=== PATIENT | male | born 1965 | race Caucasian/White ===

== ENCOUNTER 2018-07-12 17:49 | Inpatient (IN) | payer BC ==
[~2018-07-12] VITALS: Ht 180.3 cm; Wt 95.3 kg
[2018-07-12 17:53] VITALS: Ht 180.3 cm; Wt 95.3 kg
[2018-07-12 18:39] LABS: RED CELL DISTRIBUTION WIDTH 20.2 % (11.5-14.5)
[2018-07-12 18:43] LABS: BILIRUBIN TOTAL 3.34 mg/dL (0.20-1.00); CARBON DIOXIDE 18.4 mmol/L (21-32); TOTAL PROTEIN, SERUM 7.1 g/dL (6.4-8.2)
[2018-07-12 18:51] LABS: ALBUMIN 2.7 g/dL (3.4-5.0)
[2018-07-12 18:55] LABS: CREATININE SERUM 4.4 mg/dL (0.7-1.3); POTASSIUM SERUM 5.9 mmol/L (3.5-5.1)
[2018-07-12] MEDS ORDERED: LISINOPRIL40 MG PO (18:57)
[2018-07-12 19:44] LABS: MAGNESIUM 2.4 mg/dL (1.8-2.4); PHOSPHOROUS 5.2 mg/dL (2.5-4.9)
[2018-07-12 19:57] LABS: BAND NEUTROPHIL 6 % (0-10); BASOPHIL 0 % (0-2); MONOCYTE 6 % (0-7); SEGMENTED NEUTROPHILS 78 % (37-75); rbc morphology (normal/abnorm) ABNORMAL (NORMAL)
[2018-07-12 19:58] LABS: PLATELET MORPHOLOGY PLATELETS DECREASED; ovalocyte/elliptocyte 1+; schistocyte (helmet cell) 1+; target cell (codocyte) 1+
[2018-07-12 20:06] LABS: PLATELET COUNT 41 x10^3mcL (130-400)
[2018-07-12 21:40] VITALS: BP 79/50
[2018-07-12 21:55] VITALS: BP 88/45
[2018-07-12 23:20] VITALS: BP 98/38
[2018-07-12 23:39] VITALS: BP 85/41
[2018-07-13] VITALS (19 sets, daily range): BP systolic 78–112; BP diastolic 37–77
[2018-07-13 02:12] LABS: CALCIUM 8.1 mg/dL (8.5-10.1); POTASSIUM SERUM 5.4 mmol/L (3.5-5.1)
[2018-07-13 02:17] LABS: CREATININE SERUM 4.7 mg/dL (0.7-1.3)
[2018-07-13 05:50] LABS: CALCIUM 8.2 mg/dL (8.5-10.1); CARBON DIOXIDE 21.2 mmol/L (21-32); MAGNESIUM 2.2 mg/dL (1.8-2.4); PHOSPHOROUS 5.9 mg/dL (2.5-4.9); POTASSIUM SERUM 5.4 mmol/L (3.5-5.1)
[2018-07-13 05:52] LABS: BASOPHIL % 0 % (0-2); RED CELL DISTRIBUTION WIDTH 19.7 % (11.5-14.5)
[2018-07-13 06:12] LABS: ovalocyte/elliptocyte 1+; rbc morphology (normal/abnorm) ABNORMAL (NORMAL); target cell (codocyte) 1+; tear drop cell (dacryocyte) 1+
[2018-07-13 06:29] LABS: PLATELET COUNT 32 x10^3mcL (130-400)
[2018-07-13 08:15] LABS: UA SPECIFIC GRAVITY >=1.030 (1.005-1.035); microscopic required? YES; urine erythrocyte 1+ (NEGATIVE)
[2018-07-13 08:31] LABS: IRON 46 ug/dL (65-170)
[2018-07-13 08:34] LABS: TOTAL IRON BINDING CAPACITY 204 ug/dL (250-450)
[2018-07-13 08:47] LABS: CALCIUM 8.2 mg/dL (8.5-10.1); CARBON DIOXIDE 20.1 mmol/L (21-32); POTASSIUM SERUM 5.2 mmol/L (3.5-5.1)
[2018-07-13 08:55] LABS: CREATININE SERUM 4.9 mg/dL (0.7-1.3)
[2018-07-13 09:42] LABS: RED BLOOD CELLS 1.78 M/mm3 (4.52-5.90)
[2018-07-13 10:25] LABS: AMPHETAMINE QUAL UR NONE DETECTED (See below)
[2018-07-13 11:33] LABS: BASOPHIL % 0 % (0-2); RED CELL DISTRIBUTION WIDTH 19.9 % (11.5-14.5)
[2018-07-13 11:36] LABS: PLATELET COUNT 31 x10^3mcL (130-400); rbc morphology (normal/abnorm) ABNORMAL (NORMAL)
[2018-07-13 11:39] LABS: ovalocyte/elliptocyte 1+; target cell (codocyte) 1+
[2018-07-14] VITALS (17 sets, daily range): BP systolic 74–105; BP diastolic 44–59
[2018-07-14 04:31] LABS: CARBON DIOXIDE 21.5 mmol/L (21-32); POTASSIUM SERUM 5.2 mmol/L (3.5-5.1)
[2018-07-14 04:34] LABS: CREATININE SERUM 4.8 mg/dL (0.7-1.3)
[2018-07-14 04:40] LABS: BASOPHIL % 0.3 % (0-2)
[2018-07-14 04:43] LABS: PLATELET COUNT 90 x10^3mcL (130-400); RED CELL DISTRIBUTION WIDTH 20.6 % (11.5-14.5)
[2018-07-14 04:58] LABS: rbc morphology (normal/abnorm) ABNORMAL (NORMAL)
[2018-07-14 14:54] LABS: rbc morphology (normal/abnorm) ABNORMAL (NORMAL)
[2018-07-15 01:35] VITALS: BP 91/48
[2018-07-15 03:14] LABS: CALCIUM 7.4 mg/dL (8.5-10.1)
[2018-07-15 03:19] LABS: RED CELL DISTRIBUTION WIDTH 22.1 % (11.5-14.5)
[2018-07-15 03:22] LABS: PLATELET COUNT 78 x10^3mcL (130-400)
[2018-07-15 03:28] LABS: ALBUMIN 2.8 g/dL (3.4-5.0); CREATININE SERUM 6.3 mg/dL (0.7-1.3)
[2018-07-15 03:43] LABS: MONOCYTE 8 % (0-7); SEGMENTED NEUTROPHILS 71 % (37-75)
[2018-07-15 03:44] LABS: BAND NEUTROPHIL 14 % (0-10); BASOPHIL 0 % (0-2); METAMYELOCTE 1 % (0-2)
[2018-07-15 03:45] VITALS: BP 94/44
[2018-07-15 03:46] LABS: rbc morphology (normal/abnorm) ABNORMAL (NORMAL)
[2018-07-15 05:50] VITALS: BP 87/49
== END 2018-07-15 08:10 | disposition expired | DRG 871 ==
LOC: ED 17:49 → DU 18:49 → IC 18:49 → DU 20:25 → IC 07-13 04:04
PROVIDERS: Emergency Medicine; Family Medicine; Internal Medicine
PROC: 30233N1 Transfusion of Nonautologous Red Blood Cells into Peripheral Vein, Percutaneous Approach (ICD-10-PCS; 2018-07-12)
PROC: 0W3P8ZZ Control Bleeding in Gastrointestinal Tract, Via Natural or Artificial Opening Endoscopic (ICD-10-PCS; 2018-07-13)
PROC: 0BH17EZ Insertion of Endotracheal Airway into Trachea, Via Natural or Artificial Opening (ICD-10-PCS; 2018-07-13)
PROC: 5A1945Z Respiratory Ventilation, 24-96 Consecutive Hours (ICD-10-PCS; 2018-07-13)
PROC: 30233L1 Transfusion of Nonautologous Fresh Plasma into Peripheral Vein, Percutaneous Approach (ICD-10-PCS; 2018-07-13)
PROC: 30233R1 Transfusion of Nonautologous Platelets into Peripheral Vein, Percutaneous Approach (ICD-10-PCS; 2018-07-13)
PROC: 30233K1 Transfusion of Nonautologous Frozen Plasma into Peripheral Vein, Percutaneous Approach (ICD-10-PCS; 2018-07-13)
PROC: 02HV33Z Insertion of Infusion Device into Superior Vena Cava, Percutaneous Approach (ICD-10-PCS; principal; 2018-07-13 12:00)
PROC: B5181ZA Fluoroscopy of Superior Vena Cava using Low Osmolar Contrast, Guidance (ICD-10-PCS; 2018-07-13 12:00)
PROC: 2Y41X5Z Packing of Nasal Region using Packing Material (ICD-10-PCS; 2018-07-14)
DX: A41.9 Sepsis, unspecified organism (principal); J96.01 Acute respiratory failure with hypoxia; J69.0 Pneumonitis due to inhalation of food and vomit; N17.0 Acute kidney failure with tubular necrosis; E43 Unspecified severe protein-calorie malnutrition; I21.A1 Myocardial infarction type 2; R65.21 Severe sepsis with septic shock; G93.41 Metabolic encephalopathy; K92.2 Gastrointestinal hemorrhage, unspecified; E87.1 Hypo-osmolality and hyponatremia; I13.2 Hypertensive heart and chronic kidney disease with heart failure and with stage 5 chronic kidney disease, or end stage renal disease; D68.69 Other thrombophilia; N18.5 Chronic kidney disease, stage 5; Y90.9 Presence of alcohol in blood, level not specified; K70.31 Alcoholic cirrhosis of liver with ascites; D64.9 Anemia, unspecified; E83.51 Hypocalcemia; E87.8 Other disorders of electrolyte and fluid balance, not elsewhere classified; R04.0 Epistaxis; D69.59 Other secondary thrombocytopenia; I25.10 Atherosclerotic heart disease of native coronary artery without angina pectoris; K72.90 Hepatic failure, unspecified without coma; F10.10 Alcohol abuse, uncomplicated; Z66 Do not resuscitate; Z51.5 Encounter for palliative care; I46.9 Cardiac arrest, cause unspecified; E83.39 Other disorders of phosphorus metabolism; F17.210 Nicotine dependence, cigarettes, uncomplicated; Z60.2 Problems related to living alone; I50.9 Heart failure, unspecified; E87.5 Hyperkalemia; Z95.5 Presence of coronary angioplasty implant and graft; Z71.6 Tobacco abuse counseling; I25.2 Old myocardial infarction; Z98.1 Arthrodesis status; Z79.899 Other long term (current) drug therapy; Z68.26 Body mass index [BMI] 26.0-26.9, adult
CPT/HCPCS: 36556; 36600; 43235; 83880; 85378; 99406; A4628; C9113; G0480; J0171; J0610; J0696; J1200; J1610; J1940; J2060; J2250; J2270; J2310; J2370; J2543; J2916; J3010; J3430; J3490; J7030; J7040; J7050; J7620; P9016; P9035; P9047; P9059; Q0092; Q0163